=== PATIENT | male | born 1960 | race African-American/Black ===

== ENCOUNTER 2016-10-07 01:38 | Emergency (ER) | payer OTHER ==
[~2016-10-07] VITALS: Ht 172.7 cm; Wt 72.6 kg
[2016-10-07 01:42] VITALS: BP 126/85
== END 2016-10-07 03:26 | disposition home or self-care (01) ==
LOC: ER 01:45
DX: M54.9 Dorsalgia, unspecified (principal); G89.29 Other chronic pain; Z59.0 Homelessness
CPT/HCPCS: 99283; A4606; Z7610

== ENCOUNTER 2019-10-14 19:23 | Emergency (ER) | payer MEDICAID, OTHER ==
[~2019-10-14] VITALS: Ht 172.7 cm; Wt 68.0 kg
--- NOTE | 2019-10-14 20:10 | NUR ---
TO ER BED 15 AMBULATORY BIB SELF FOR C/O SI PLANNING TO CUT HIS WRIST. PT DENIES HI. PT AAOX4 NO ACUTE DISTRESS NOTED, RESP EVEN AND UNLABORED. PT CALM AND COOPERATIVE AT THIS TIME. PLACE PT ON HOSPITAL GOWN, ALL BELONGING REMOVED AND PLACED IN A LOCK HOSPITAL LOCKER. 1:1 SITTER AT BEDSIDE FOR PT SAFETY.
[2019-10-14 20:35] LABS: BASOPHILS # (AUTO) 0.1 /CMM (0.0-0.2); BASOPHILS % (AUTO) 1.1 % (0.0-2.0); EOSINOPHILS % (AUTO) 4.3 % (0.0-6.0); HEMATOCRIT 45 % (39-51); HEMOGLOBIN 14.9 g/dL (13.5-17.5); LYMPHOCYTES # (AUTO) 1.5 /CMM (0.8-4.8); LYMPHOCYTES % (AUTO) 31.8 % (20.0-44.0); MEAN CORPUSCULAR HGB CONC 33 g/dl (31.0-36.0); MEAN CORPUSCULAR VOLUME 95 fL (80-96); MONOCYTES # (AUTO) 0.4 /CMM (0.1-1.30); MONOCYTES % (AUTO) 8.1 % (2.0-12.0); NEUTROPHILS # (AUTO) 2.6 /CMM (1.8-8.9); NEUTROPHILS % (AUTO) 54.7 % (43.0-81.0); PLATELET COUNT (AUTO) 230 /CMM (150-450); RED BLOOD CELL COUNT(AUTO) 4.73 MIL/uL (4.5-6.0); WHITE BLOOD COUNT (AUTO) 4.7 K/uL (4.3-11.0)
[2019-10-14 20:47] LABS: CARBON DIOXIDE 30 mmol/L (21-32); CHLORIDE 108 mmol/L (98-107); CREATININE 1.3 mg/dL (0.6-1.3); GLUCOSE 93 mg/dL (74-106); POTASSIUM 4.1 mmol/L (3.5-5.1); SODIUM SERUM 145 mmol/L (136-145); UREA NITROGEN, BLOOD 22 mg/dL (7-18)
[2019-10-14 20:52] LABS: ALANINE AMINOTRANSFERASE 43 U/L (12-78); ALBUMIN 3.6 g/dL (3.4-5.0); ALCOHOL, BLOOD < 3 mg/dL (0-0); ALKALINE PHOSPHATASE 222 U/L (46-116); ASPARTATE AMINOTRANSFERASE 35 U/L (15-37); BILIRUBIN,DIRECT 0.1 mg/dL (0.0-0.2); BILIRUBIN,TOTAL 0.3 mg/dL (0.2-1.0); TOTAL PROTEIN, SERUM 7.4 g/dL (6.4-8.2)
[2019-10-14 20:53] LABS: ACETAMINOPHEN < 2 ug/ml (10-30); SALICYLATE < 2.8 mg/dL (2.8-20.0)
[2019-10-14 22:20] LABS: APPEARANCE,URINE CLEAR (CLEAR); BILIRUBIN,URINE NEGATIVE (NEGATIVE); BLOOD, URINE NEGATIVE Ery/uL (NEGATIVE); COLOR,URINE YELLOW (YELLOW); KETONES,URINE NEGATIVE (NEGATIVE); LEUKOCYTE ESTERASE ,URINE NEGATIVE (NEGATIVE); NITRITE, URINE NEGATIVE (NEGATIVE); PROTEIN,URINE NEGATIVE (NEGATIVE); UGLUCOSE NEGATIVE (NEGATIVE)
[2019-10-14 22:31] LABS: BACTERIA,URINE Few /HPF (None Seen); SQUAMOUS EPITHELIAL CELL,UR Rare /HPF (None Seen)
--- NOTE | 2019-10-14 22:38 | NUR ---
CLINICAL FAXED TO [facility] FOR VOLUNTARY PSYCH ADMISSION.
--- NOTE | 2019-10-15 00:29 | NUR ---
PT ASLEEP, EASILY AROUSABLE, NO ACUTE DISTRESS NOTED, RESP EVEN AND UNLABORED. CALL LIGHT WIHTIN REACH. 1:1 SITTER REMAINS AT BEDSIDE FOR PT SAFETY.
--- NOTE | 2019-10-15 02:25 | NUR ---
PT ACCEPTED AT [facility] ACCEPTING MD VICKERS PT WILL GOT O UNIT 2 PHONE # FOR REPORT
--- NOTE | 2019-10-15 02:58 | NUR ---
[facility] CALLED FOR AMBULANCE TRANSPORT WILL CALL BACK FOR ETA RESERVATION #[phone]
--- NOTE | 2019-10-15 03:48 | NUR ---
REPORT GIVEN TO MARQUIS FOR JÚNIOR FROM [facility]
--- NOTE | 2019-10-15 03:59 | NUR ---
jaycob 7am eta through [facility]
--- NOTE | 2019-10-15 05:46 | NUR ---
PT ASLEEP, EASILY AROUSABLE, NO ACUTE DISTRESS NOTED, RESP EVEN AND UNLABORED. CALL LIGHT WIHTIN REACH. 1:1 SITTER REMAINS AT BEDSIDE FOR PT SAFETY.
[2019-10-15 06:52] VITALS: BP 143/94
--- NOTE | 2019-10-15 06:54 | NUR ---
PT RESTING COMFORTABLY. VSS.
--- NOTE | 2019-10-15 07:18 | NUR ---
REPORT GIVEN TO TRANSPORT. PT TRANSFERED TO [facility].
== END 2019-10-15 07:19 ==
LOC: ER 19:27
DX: R45.851 Suicidal ideations (principal); F32.9 Major depressive disorder, single episode, unspecified; G89.29 Other chronic pain; M54.5 Low back pain; F20.9 Schizophrenia, unspecified; Z98.890 Other specified postprocedural states
CPT/HCPCS: 36415; 80048; 80076; 80305; 80307; 80329; 81001; 85025; 99285; G0480; 81000-TC

== ENCOUNTER 2020-08-13 09:44 | Emergency (ER) | payer OTHER ==
[~2020-08-13] VITALS: Ht 172.7 cm; Wt 72.6 kg
--- NOTE | 2020-08-13 09:52 | NUR ---
pt ambulatory usinng a walker. requesting medical clearance so he can go to [facility] for voluntary psych admission. pt states feeling depressed and suicidal w. plan to "cut his wrist." pt is cooperative to staff. stable vitals aircraft captain. awaiting md fuller.
--- NOTE | 2020-08-13 10:02 | NUR ---
dr schuster at bedside for eval.
--- NOTE | 2020-08-13 10:40 | NUR ---
analytical lab analyst at bedside for blood draw.
[2020-08-13 10:47] LABS: BILIRUBIN,URINE Negative (NEGATIVE); COLOR,URINE YELLOW (YELLOW); LEUKOCYTE ESTERASE ,URINE Negative (NEGATIVE); NITRITE, URINE Negative (NEGATIVE); PH,URINE 5.5 (5.0-8.0); PROTEIN,URINE Negative (NEGATIVE); UGLUCOSE Negative (NEGATIVE)
[2020-08-13 10:53] LABS: BASOPHILS % (AUTO) 0.9 % (0.0-2.0); EOSINOPHILS % (AUTO) 3.5 % (0.0-6.0); HEMATOCRIT 45 % (39-51); HEMOGLOBIN 14.8 g/dL (13.5-17.5); LYMPHOCYTES # (AUTO) 1.7 K/uL (0.8-4.8); LYMPHOCYTES % (AUTO) 31.3 % (20.0-44.0); MEAN CORPUSCULAR HGB CONC 33 g/dl (31.0-36.0); MEAN CORPUSCULAR VOLUME 91 fL (80-96); MONOCYTES # (AUTO) 0.5 K/uL (0.1-1.30); MONOCYTES % (AUTO) 9.7 % (2.0-12.0); NEUTROPHILS % (AUTO) 54.6 % (43.0-81.0); PLATELET COUNT (AUTO) 259 K/uL (150-450); RED BLOOD CELL COUNT(AUTO) 4.92 MIL/uL (4.5-6.0); WHITE BLOOD COUNT (AUTO) 5.4 K/uL (4.3-11.0)
[2020-08-13 11:09] LABS: BACTERIA,URINE Few /HPF (None Seen); RBC,URINE NONE SEEN /HPF (0-2); SQUAMOUS EPITHELIAL CELL,UR None Seen /HPF (None Seen)
[2020-08-13 11:22] LABS: CHLORIDE 101 mmol/L (98-107); POTASSIUM 4.5 mmol/L (3.5-5.1); SODIUM SERUM 137 mmol/L (136-145)
[2020-08-13 11:23] LABS: CALCIUM, SERUM 9.7 mg/dL (8.5-10.1); CARBON DIOXIDE 31 mmol/L (21-32); CREATININE 1.3 mg/dL (0.6-1.3); GLUCOSE 95 mg/dL (74-106); UREA NITROGEN, BLOOD 28 mg/dL (7-18)
[2020-08-13 11:33] LABS: BILIRUBIN,DIRECT 0.2 mg/dL (0.0-0.2); BILIRUBIN,TOTAL 0.5 mg/dL (0.2-1.0)
[2020-08-13 11:34] LABS: ACETAMINOPHEN < 3 ug/ml (10-30); ALANINE AMINOTRANSFERASE 89 U/L (12-78); ALBUMIN 3.6 g/dL (3.4-5.0); ALKALINE PHOSPHATASE 124 U/L (46-116); ASPARTATE AMINOTRANSFERASE 77 U/L (15-37); TOTAL PROTEIN, SERUM 7.8 g/dL (6.4-8.2)
[2020-08-13 11:42] LABS: ALCOHOL, BLOOD 0 mg/dL (0-0)
--- NOTE | 2020-08-13 11:59 | NUR ---
Patient denies having any distress at this time. Having lunch. Tolerated provided food well.
--- NOTE | 2020-08-13 14:20 | NUR ---
SS Consult requested for SI & Homelessness. The pt. is 43-year-old black male who presents to the ED with C/O SI. SW met with pt. The pt. appears unkempt A&O X4 and makes good eye contact. Pt.'s mood is dysphoric, with stressed affect a few days ago. Pt. presents guarded and stated, "a lot has happened that triggered these thoughts". Pt. states he has a Hx. of Schizophrenia and is currently on Abilify. Pt. denies HI and denies hallucinations SW offered pt. voluntary admission at a psychiatric hospital for treatment and pt. is agreeable. Pt. denies homelessness. However, pt. appears disheveled. Pt. stated he lives in [[address] [place] [address]] alone. Pt, states he is in the [facility] someone. Pt. states he receives General Relief. Pt. denies HI and denies visual hallucinations. Pt. denies drug or ETOH use. SW provided pt. with homeless resources and pt. refused them. Pt. stated he doesn't have a support system. SW explored pt.'s polysubstance use. Pt. states he uses Cocaine and Cannabinoids a few times a week. SW provided pt. with addiction resources and pt. refused them. Plan: CALIN referred pt. to [facility] [[facility] [place] [address] FAX:[phone]] for inpatient psychiatric treatment. Patient refused to sign homeless waiver. CALIN offered pt. with the following homeless resources and pt. refused them: Substance Abuse resources provided included: [facility] Substance Abuse Self-Helpline (SAS) ; CRI -HELP 93722 [facility] [place] [id number] ; [facility] 63521 [facility] [address] ; [facility] 89346 [facility] [address] ; [facility] [address] [facility] [address] ; [facility] [address] [facility] [address] ; [facility] [place] [address] [facility] [phone] ; [facility] Substance Abuse Helpline(SAS)[facility] ; [facility] ; [facility] Yeoman; [facility] [place] Randolph; C[facility]Help [place]; I-ADARP Inter [facility] Abuse Recovery Inocente Rolon; [facility]; [facility]; [facility] Tarza; [facility] [place], Inc. Tyson Alcantara; Alcoholics Anonymous -SFV; Yz-Gwgs-Seivehh ; Marijuana Anonymous -SFV; Narcotics Anonymous www.na.org; Year-round shelters: [place] [address] [place], [place] [phone] ; [place] [facility] [place] [address] [place] [address]; [place] [facility] Ldnucea8799 [facility] [address] Winter Shelters: Roberto Alcantara Provider: [facility] [place] Address: [address] [facility] [place], [address] # of Beds: 47 Population Served: [facility] 6 | [facility] Niecy Callaway Maricruz Provider: Home at Last Address: [address], [address] # of Beds: 66 Population Served: Celestino Alcantara Provider: First to Serve Address: [address] [facility], [address] # of Beds: 56 Population Served: Celestino Alcantara Provider: /[facility] [place] Address: 8908 [facility], [address] # of Beds: 49 Population Served: Coed SPA 8 | [facility] Provider: First to Serve Address: [address] Mary Imogene Bassett HospitalYoandy Goode, [address] # of Beds: 37 Population Served: Coed Hygiene: [place] [facility]: [address] [place] ; [place] [facility] [address] [facility] Reseda ; [facility] 1939 [facility] . Food Resources: [place] Food Pantry at [facility]- 5700 [facility]; Meet Each Need with Dignity ([facility]) 44664 [facility]; [facility] Food Pantry 4371 [facility]; [facility] 8517 [facility]. Mental Health resources provided: [facility] [address] [place], [place] [phone] ; [facility] Mental Health Center, Inc. 38117 [facility] [address], [place], [place] [phone] ; [place] Patricia [facility] Mental Health Urgent Care Center [address] Britt[address] Gomez DrWeyers [place], [place] [phone] ; [place] [facility] [address] [place], [place] [address] Healthcare Clinics: [facility] 6551 [facility], [address] [place]. [place] ; [facility] 68[address] [facility] [address] [place] [address]; [facility] 61523 [facility]. [place] [phone] Counseling--Outpatient [facility] 4419 [facility], [place] [address] (Specializes in in-depth psychotherapy for emotional distress: anxiety, depression, interpersonal conflicts, life transitions, childhood abuse) [facility] [address] [place] [address] (Assist with solving problem marital difficulties, separation & divorce, aging parents, & grief, chronic & terminal illness) [facility] [address] [place] [address] (Deal with loss & grief, anxiety, marital difficulties) Homebound/Mental Health Services 29333 Miguel Angel[facility] [address] [place], [place] [phone] (Provide in-home mental services to people who are incapable of leaving their homes) Organization for Needs of the Elderly Senior Service/Resource Center [address] [place] [address] [facility] [address] Hernandez [place], [place] [phone] PSYCHIATRIC OUTPATIENT SERVICES [facility] Partial Hospitalization and Intensive Outpatient Program (Managed Care and [place] Only)02296 [facility]. [facility] [phone] [facility] Partial Hospitalization and Outpatient Yfpaitk40224 Rohan [facility]. [address] [place], [place] [phone] [facility] Partial Hospitalization and Outpatient Neseuys2887 Inocente Rolon [facility]. [place], [place] [phone] [facility] Eki96972 [address] Goncalves. [address] [place], [place] [phone] [facility] Partial Hospitalization and Outpatient Ultnpri35523 Gregg Gomez [phone]
--- NOTE | 2020-08-13 14:24 | NUR ---
SW referred pt. to [facility] [[address] [place] [address] FAX:[phone]] for inpatient psychiatric treatment.
--- NOTE | 2020-08-13 17:10 | NUR ---
CALLED FRANCISCO WILL LEET US KNOW ZACHARIAH SUE.
--- NOTE | 2020-08-13 18:48 | NUR ---
CALLED [facility] INTAKE, NURSING SUP REVIEWING CLINICALS WILL CALL WITH UPDATE
--- NOTE | 2020-08-13 19:00 | NUR ---
The patient sleeping. Responsive to tactile stimuli. Denies pain. In room air and denies SOB. Respiration regular and unlabored.
--- NOTE | 2020-08-13 23:26 | NUR ---
TRANSFER INFO: PT GOING TO [facility], ACCEPTED BY DR VICKERS, RN FOR REPORT [phone] EXT [phone], CALL THE CAR AMBULANCE ETA TO FOLLOW. RES#[id number]
--- NOTE | 2020-08-14 03:33 | NUR ---
REPORT GIVEN TO TUNG KELLEY AT [facility].
--- NOTE | 2020-08-14 03:35 | NUR ---
REPORT GIVEN TO AMBULANCE TEAM FOR JÚNIOR. AND TRANSFERRING RESPONSIBLITIES.
[2020-08-14 03:36] VITALS: BP 139/58
== END 2020-08-14 03:37 ==
LOC: ER 09:49
DX: R45.851 Suicidal ideations (principal); F14.10 Cocaine abuse, uncomplicated; F12.10 Cannabis abuse, uncomplicated; R74.01 Elevation of levels of liver transaminase levels; F19.10 Other psychoactive substance abuse, uncomplicated; G89.29 Other chronic pain; M54.5 Low back pain; Z20.822 Contact with and (suspected) exposure to COVID-19
CPT/HCPCS: 36415; 80048; 80076; 80143; 80307; 80320; 81001; 85025; 87086; 87426; 99285; C9803; G0480

== ENCOUNTER 2020-08-25 03:42 | Emergency (ER) | payer MEDICAID, OTHER ==
[~2020-08-25] VITALS: Ht 172.7 cm; Wt 72.6 kg
[2020-08-25] MEDS ORDERED: FLUORESCEIN SODIUM OPHTH 1 EA STRIP ONE (04:19)
--- NOTE | 2020-08-25 04:25 | NUR ---
PRSENTED TO THE ER FOR C/O SI, W/ PLAN TO CUT HIS WRIST. ALSO W/ C/O REDNESS AND BURNING SENSATION ON BOTH EYES. PT UNABLE TO PROVIDE URINE SAMPLE AT THIS TIME. WAS PLACED ON SI PRCAUTION. VSS. WILL CONT TO MONITOR ,
[2020-08-25] MEDS: TETRACAINE HCL 0.5% OPHTALMIC 15 ML BOTTLE OP ONE (04:29)
[2020-08-25] MEDS: FLUORESCEIN SODIUM OPHTH 1 EA STRIP OP ONE (04:29)
[2020-08-25 04:38] LABS: BASOPHILS # (AUTO) 0.1 K/uL (0.0-0.2); BASOPHILS % (AUTO) 0.9 % (0.0-2.0); EOSINOPHILS % (AUTO) 3.7 % (0.0-6.0); HEMATOCRIT 46 % (39-51); HEMOGLOBIN 15.5 g/dL (13.5-17.5); LYMPHOCYTES # (AUTO) 1.9 K/uL (0.8-4.8); MEAN CORPUSCULAR HGB CONC 33 g/dl (31.0-36.0); MEAN CORPUSCULAR VOLUME 91 fL (80-96); MONOCYTES # (AUTO) 0.7 K/uL (0.1-1.30); MONOCYTES % (AUTO) 11.7 % (2.0-12.0); NEUTROPHILS # (AUTO) 3.1 K/uL (1.8-8.9); NEUTROPHILS % (AUTO) 51.7 % (43.0-81.0); PLATELET COUNT (AUTO) 258 K/uL (150-450); RED BLOOD CELL COUNT(AUTO) 5.07 MIL/uL (4.5-6.0); WHITE BLOOD COUNT (AUTO) 6.1 K/uL (4.3-11.0)
--- NOTE | 2020-08-25 04:42 | NUR ---
COVID SWAB AND URINE SAMPLE WAS SENT TO LAB
[2020-08-25 04:44] LABS: CARBON DIOXIDE 28 mmol/L (21-32); CHLORIDE 104 mmol/L (98-107); CREATININE 1.2 mg/dL (0.6-1.3); GLUCOSE 106 mg/dL (74-106); POTASSIUM 4.2 mmol/L (3.5-5.1); SODIUM SERUM 139 mmol/L (136-145); UREA NITROGEN, BLOOD 25 mg/dL (7-18)
[2020-08-25 04:49] LABS: BILIRUBIN,URINE NEGATIVE (NEGATIVE); COLOR,URINE YELLOW (YELLOW); LEUKOCYTE ESTERASE ,URINE NEGATIVE (NEGATIVE); NITRITE, URINE NEGATIVE (NEGATIVE); PROTEIN,URINE TRACE mg/dl (NEGATIVE); UGLUCOSE NEGATIVE (NEGATIVE)
[2020-08-25 04:51] LABS: ACETAMINOPHEN 0 ug/ml (10-30); ALANINE AMINOTRANSFERASE 69 U/L (12-78); ALBUMIN 3.7 g/dL (3.4-5.0); ALCOHOL, BLOOD < 3 mg/dL (0-0); ALKALINE PHOSPHATASE 138 U/L (46-116); ASPARTATE AMINOTRANSFERASE 40 U/L (15-37); BILIRUBIN,DIRECT 0.2 mg/dL (0.0-0.2); BILIRUBIN,TOTAL 0.4 mg/dL (0.2-1.0); TOTAL PROTEIN, SERUM 7.9 g/dL (6.4-8.2)
[2020-08-25 05:09] LABS: BACTERIA,URINE None seen /HPF (None Seen); MUCUS,URINE Few /LPF (None Seen); RBC,URINE 0-2 /HPF (0-2); SQUAMOUS EPITHELIAL CELL,UR Few /HPF (None Seen); WBC,URINE 0-2 /HPF (0-3)
--- NOTE | 2020-08-25 07:10 | NUR ---
FACESHEET AND CLINICALS FAXED TO [facility].
--- NOTE | 2020-08-25 09:14 | NUR ---
[facility]
--- NOTE | 2020-08-25 09:17 | NUR ---
CALLED SEARCH COORDINATOR... IN A MEETING AND WILL COME LATER
--- NOTE | 2020-08-25 11:50 | NUR ---
"Ukrainian Folk Arts Instructor consult: rehabilitation services manager consult requested for suicidal ideation with a plan and substance use. Patient is a 59-year-old, male. SW met with patient at his bedside in the emergency department. Patient was alert and oriented x4. Patient was calm and eating his lunch. Per chart, patient presented to the emergency department on 08/25/20 for complaints of suicidal ideation with a plan to cut his wrist. ED nursing staff development coordinator previously faxed clinicals to [facility], , for review. SW assessed patients current suicidal ideation and patient reported current suicidal ideation with a plan to cut his wrist. Patient denied homicidal ideation. Patient agreed to voluntary inpatient psychiatric hospitalization at [facility], if accepted. Patient reported that he has been homeless for the last nine months and has been living in his car. Patient stated that his car is currently parked in the hospital. SW asked the patient if he has access to social support and patient stated that he is in contact with his sister, Taylor, . Patient stated that his sister assists him occasionally by providing showers or money. Patient stated that he uses a walker and his walker is in his car. SW asked the patient if he currently has a source of income and patient reported SSI. SW asked the patient about his history of substance use and patient reported, alcohol, cannabis and cocaine whenever I can. Patient did not provide SW with further information regarding his substance use frequency/daily use. SW assessed patients history of mental illness and patient reported a history of Depression and Schizophrenia. Patient stated that he currently takes psychiatric medication which includes, Abilify and Trazodone. SW asked the patient where he obtains his psychiatric medication prescriptions and patient reported, [facility]. SW offered the patient homeless, substance use and mental health resources. Patient accepted the resources and thanked SW stating that he will follow up independently. Patient signed the homeless waiver and SW filed the waiver in the patients chart. Pending acceptance to [facility]. PLAN: Pending acceptance to [facility]. RESOURCES: Year-round shelters: [place] [address] [place] [address] ; [facility] [place] [address] [place] [address]; [facility] [facility] Ovuwewl0541 [facility]. [facility] [address] HOMELESS RESOURCES: SPA 4 | [facility] Recreation [place] Provider: First to Serve Address: [address], [address] # of Beds: 48 Population Served: [facility] Provider: First to Serve Address: 7600 [facility], [address] # of Beds: 73 Population Served: [facility] 6 | [facility] Provider: Home at Last Address: 45329 [facility], [address] # of Beds: 63 Population Served: [facility] 3 | [facility] Provider: [facility] [place] Address: [address] [place] [address] # of Beds: 75 Population Served: [facility] 8 | [facility] Provider: [facility] [place] Address: [address] [place] [address] # of Beds: 80 Population Served: [facility] 1 | [facility] [place] Provider: [facility] [place] Address: [address] [place] [address], [address] # of Beds: 85 Population Served: [facility] 2 | [facility] Provider: [place] [facility] Address: Confidential (please call for location) # of Beds: 52 Population Served: [facility] 4 | [facility] Provider: [facility] [place] [facility] Address: 566 [facility], [address] # of Beds: 49 Population Served: [facility] Provider: First To Serve Address: 313 [facility], [address] # of Beds: 27 Population Served: [facility] Hygiene: [place] [facility]: [address] Vipul Hernandez [place] ; [place] [facility] [address]796 [facility] ; [facility] 3601 Inocente Rosasys . Food Resources: [place] Food Pantry at [facility]- [address] Mir. [place]; Meet Each Need with Dignity ([facility]) [address] [place]; [facility] Food Pantry 4369 [facility]cy[facility]; [facility] [address] [place] [address] [place]. Mental Health resources provided: [facility] [address] [place] [address] ; [facility] Mental Health [place], Inc. [address]492 [facility] [address] 2, [place], [place] [phone] ; [facility] Urgent Care Center 03804 [facility] [place], [place] [phone] ; [facility] [place] [address] [place], [place] [phone] Healthcare Clinics: [facility] 6551 [facility], [address] [place]. [place] ; [facility] Clinic 6801 [facility] [address] [place] [address]; [facility] [address]256 [facility]. [place] [address] [phone] Counseling--Outpatient [facility] 4419 [facility], [place] [address] (Specializes in in-depth psychotherapy for emotional distress: anxiety, depression, interpersonal conflicts, life transitions, childhood abuse) PSYCHIATRIC OUTPATIENT SERVICES [facility] Partial Hospitalization and Intensive Outpatient Program (Managed Care and [place] Only) 85656 [facility]. [facility] [phone] [facility] Partial Hospitalization and Outpatient Program 86318 [facility]. [address] [place] [address] [facility] Partial Hospitalization and Outpatient Program 4911 [facility] [place] [address] VAN NUYS [facility] Mental Health [place] Inc [address] Litzy [facility]. [address] [place], [place] [address] [facility] Partial Hospitalization and Outpatient Program [address] Gre[facility] Lt[facility] HospitaledgardoSEATTLE, [place] [phone] Substance use resources provided included: [facility] Substance Abuse Self-Helpline (SAS) ; CRI -HELP [address]74 [place] [address] ; [facility] 51129 [facility] [address] ; [facility] 400 [facility] [address] ; [facility] 4940 [facility] [address] ; [facility] 909 [facility] [address] ; [facility] [place]; Cri-Help [place]; [place] Ludivina; Alcoholics Anonymous -SFV"
--- NOTE | 2020-08-25 13:56 | NUR ---
Ophthalmic Pathologist note: Per [facility] request, CALIN re-faxed clinicals to [facility], .
--- NOTE | 2020-08-25 15:35 | NUR ---
PT ACCEPTED TO [facility] UNDER DR. GRUBBS CALL [phone] X [phone] UNIT TWO JOCELYNE
--- NOTE | 2020-08-25 15:39 | NUR ---
[facility] [place] TWO HOUR ETA
--- NOTE | 2020-08-25 15:41 | NUR ---
CALLED [facility] ETA 60 MINS.
[2020-08-25 16:00] VITALS: BP 118/70
--- NOTE | 2020-08-25 16:28 | NUR ---
patient picked up by private ambulance going to [facility] in no distress.
== END 2020-08-25 16:28 ==
LOC: ER 03:52
DX: R45.851 Suicidal ideations (principal); F19.10 Other psychoactive substance abuse, uncomplicated; S05.92XA Unspecified injury of left eye and orbit, initial encounter; S05.91XA Unspecified injury of right eye and orbit, initial encounter; X58.XXXA Exposure to other specified factors, initial encounter; Y92.89 Other specified places as the place of occurrence of the external cause; Z20.822 Contact with and (suspected) exposure to COVID-19; Z59.0 Homelessness; F17.200 Nicotine dependence, unspecified, uncomplicated
CPT/HCPCS: 36415; 80048; 80076; 80143; 80307; 80320; 81001; 85025; 87426; 99285; C9803; G0480

== ENCOUNTER 2020-10-23 02:03 | Emergency (ER) | payer MEDICAID ==
[~2020-10-23] VITALS: Ht 172.7 cm; Wt 75.7 kg
--- NOTE | 2020-10-23 02:08 | NUR ---
PATIENT CAME TO THE ER BED 14 BIBRA FROM HOME C/O SUICIDIAL IDEATION" I PLAN TO RUN INTO TRAFFIC, IF NOT, I WILL CUT MYSELF WITHAliza ROÍS". PATIENT IS ALERT AND ORIENTED x4. PATIENT IS PLACED INTO A GOWN. PT'S PERSONAL ITEMS ARE REMOVED TAKEN AWAY. PATIENT IS BEING WATCHED BY A SITTER. PATIENT IS BREATHING EVENLY AND UNLABORED ON ROOM AIR. WILL CONTINUE TO MONITOR THE PATIENT.
--- NOTE | 2020-10-23 02:13 | NUR ---
PATIENT'S BELONGINGS ARE REMOVED AND PLACED INTO A SAFE LOCKER.
--- NOTE | 2020-10-23 02:20 | NUR ---
BLOOD AND COVID SWAB ANTIGEN COLLECTED AND SENT TO THE LAB.
[2020-10-23 02:28] LABS: BASOPHILS % (AUTO) 0.9 % (0.0-2.0); EOSINOPHILS % (AUTO) 4.1 % (0.0-6.0); HEMATOCRIT 46 % (39-51); HEMOGLOBIN 15.7 g/dL (13.5-17.5); LYMPHOCYTES # (AUTO) 1.8 K/uL (0.8-4.8); LYMPHOCYTES % (AUTO) 34.1 % (20.0-44.0); MEAN CORPUSCULAR HGB CONC 34 g/dl (31.0-36.0); MEAN CORPUSCULAR VOLUME 93 fL (80-96); MONOCYTES # (AUTO) 0.3 K/uL (0.1-1.30); NEUTROPHILS # (AUTO) 2.9 K/uL (1.8-8.9); NEUTROPHILS % (AUTO) 54.9 % (43.0-81.0); PLATELET COUNT (AUTO) 252 K/uL (150-450); RED BLOOD CELL COUNT(AUTO) 4.95 MIL/uL (4.5-6.0); WHITE BLOOD COUNT (AUTO) 5.3 K/uL (4.3-11.0)
[2020-10-23 02:36] LABS: ALANINE AMINOTRANSFERASE 52 U/L (12-78); ALBUMIN 3.5 g/dL (3.4-5.0); ALCOHOL, BLOOD < 3 mg/dL (0-0); ALKALINE PHOSPHATASE 198 U/L (46-116); ASPARTATE AMINOTRANSFERASE 37 U/L (15-37); BILIRUBIN,TOTAL 0.2 mg/dL (0.2-1.0); CALCIUM, SERUM 9.3 mg/dL (8.5-10.1); CARBON DIOXIDE 32 mmol/L (21-32); CHLORIDE 109 mmol/L (98-107); CREATININE 1.3 mg/dL (0.6-1.3); GLUCOSE 115 mg/dL (74-106); POTASSIUM 4.7 mmol/L (3.5-5.1); SODIUM SERUM 149 mmol/L (136-145); TOTAL PROTEIN, SERUM 7.3 g/dL (6.4-8.2); UREA NITROGEN, BLOOD 20 mg/dL (7-18)
[2020-10-23 02:37] LABS: ACETAMINOPHEN 0 ug/ml (10-30)
--- NOTE | 2020-10-23 03:20 | NUR ---
URINE COLELCTED AND SENT LAB
[2020-10-23 03:23] LABS: BILIRUBIN,URINE Negative (NEGATIVE); COLOR,URINE DARK YELLOW (YELLOW); LEUKOCYTE ESTERASE ,URINE Negative (NEGATIVE); NITRITE, URINE Negative (NEGATIVE); PROTEIN,URINE Negative (NEGATIVE); UGLUCOSE Negative (NEGATIVE)
--- NOTE | 2020-10-23 04:05 | NUR ---
FACESHEET AND CLINICALS FAXED TO [facility].
[2020-10-23] MEDS ORDERED: GABA-532 PO (08:49)
[2020-10-23] MEDS ORDERED: TAMS-12 PO ×2 (08:49→13:30)
[2020-10-23] MEDS ORDERED: LISI40TA13 PO (08:49)
--- NOTE | 2020-10-23 11:05 | NUR ---
SS consult: SS consult requested for pt with SI. Pt is a 59-year-old, male. SW met with pt at his bedside in the ED. Pt presented calm and cooperative. Pt was appropriately groomed. Pt was alert and oriented x4. Per chart, pt was brought in by ambulance from home on 10/23/20 for SI with a plan to harm himself by running into traffic or cutting himself with a blade. Pt stated that he currently lives in an apartment with his sister, Taylor [[address] [place] [address]]. Pt stated that he has social support from his sister, Taylor. Pt did not have contact information for his sister. Pt stated that he is independent with his ADL's. Pt receives SSI as a source of income. Pt denied hx of substance use. Per pt's toxicology pt is positive for cocaine, amphetamine and cannabis use. Pt reported hx of Bipolar Disorder and stated that he is currently taking psychiatric medication. Pt was unable to recall which medications he is currently taking. Pt stated that he obtains his medication from a mental health clinic in [facility]. Pt denied hallucinations. SW assessed pt's current SI/HI. Pt denied current SI/HI and stated that he is "feeling a lot better," and wants to go home. Pt stated that he is able to contract for his safety and is aware of where to go if he is feeling suicidal. SW offered the pt resources for mental health. Pt accepted the resources and thanked SW. Pt was informed that [facility], if he was experiencing SI at a later time. Pt stated that he is familiar with the hospital and will seek support if needed. Pt stated that he will utilize his social support more. SW discussed discharge plans with the pt. Pt stated that he will return to his prior living arrangement and will use the train for transportation. PLAN: Pt will return to his prior living arrangement. No further SS intervention at this time, however, SW will remain available as needed. Mental Health resources provided: [facility] [address] [place] [address] ; [facility], Inc. [address] [facility] [address], [place] [address] ; [facility] [address]6747 [place] [address] ; [facility] [place], [place] [phone] Counseling--Outpatient [facility] 4419 [facility], [place] [address] (Specializes in in-depth psychotherapy for emotional distress: anxiety, depression, interpersonal conflicts, life transitions, childhood abuse) PSYCHIATRIC OUTPATIENT SERVICES [facility] Partial Hospitalization and Intensive Outpatient Program (Managed Care and [place] Only) 17227 [facility]. [facility] [phone] [facility] Partial Hospitalization and Outpatient Program [address] [place], [place] [phone] [facility] Partial Hospitalization and Outpatient Program 4911 Sourav Rolon [facility]. [place], [place] [phone] SOURAV [facility] Mental Health [place] [facility] [address] [place], [place] [phone] [facility] Partial Hospitalization and Outpatient Program [address] [place], [place] [phone]
[2020-10-23] MEDS ORDERED: AMLO-213 PO (13:30)
[2020-10-23] MEDS ORDERED: CYCL5TAB PO (13:30)
[2020-10-23] MEDS ORDERED: AMLODIPINE BESYLATE 10 MG TABLET ONE (13:41)
[2020-10-23] MEDS ORDERED: CYCLOBENZAPRINE 10 MG TABLET ONE (13:41)
[2020-10-23] MEDS ORDERED: TAMSULOSIN 0.4 MG CAP.SR.24H ONE (13:42)
[2020-10-23 13:53] VITALS: BP 152/77
--- NOTE | 2020-10-23 13:54 | NUR ---
Patient a/ox4, breathing even and unlabored, no sob noted. Needs attended. Patient discharged to home in stable condition. Written and verbal after care instructions given. Patient verbalizes understanding of instruction.
[2020-10-23] MEDS ORDERED: TAMSULOSIN 0.4 MG CAP.SR.24H PO ONE (14:00)
[2020-10-23] MEDS ORDERED: AMLODIPINE BESYLATE 5 MG TABLET PO ONE (14:00)
[2020-10-23] MEDS ORDERED: CYCLOBENZAPRINE 10 MG TABLET PO ONE (14:00)
== END 2020-10-23 13:54 | disposition home or self-care (01) ==
LOC: ER 02:03
DX: R45.851 Suicidal ideations (principal); F19.10 Other psychoactive substance abuse, uncomplicated; Z20.822 Contact with and (suspected) exposure to COVID-19; F20.9 Schizophrenia, unspecified
CPT/HCPCS: 36415; 80048; 80076; 80143; 80307; 80320; 81003; 85025; 87426; 99285; C9803; G0480

== ENCOUNTER 2020-10-24 18:31 | Emergency (ER) | payer MEDICAID ==
[~2020-10-24] VITALS: Ht 172.7 cm; Wt 75.7 kg
[~2020-10-24 18:31] MED LIST: AMLO-213 PO; CYCL5TAB PO; GABA-532 PO; LISI40TA13 PO; TAMS-12 PO
--- NOTE | 2020-10-24 19:05 | NUR ---
Pt bibself c/o si with plan to cut wrist. Pt aaox4 breathing evenly and unlabored. Pt changed into gown with belongings placed in locker. Sitter at bedside. Pt attached to monitor and pox. will continue to monitor.
[2020-10-24 19:43] LABS: BILIRUBIN,URINE Negative (NEGATIVE); COLOR,URINE YELLOW (YELLOW); LEUKOCYTE ESTERASE ,URINE Negative (NEGATIVE); NITRITE, URINE Negative (NEGATIVE); PROTEIN,URINE Negative (NEGATIVE); UGLUCOSE 250 MG/DL mg/dL (NEGATIVE)
[2020-10-24 19:49] LABS: EOSINOPHILS % (AUTO) 2.5 % (0.0-6.0); HEMATOCRIT 48 % (39-51); HEMOGLOBIN 15.7 g/dL (13.5-17.5); LYMPHOCYTES # (AUTO) 0.5 K/uL (0.8-4.8); LYMPHOCYTES % (AUTO) 13.5 % (20.0-44.0); MEAN CORPUSCULAR HGB CONC 33 g/dl (31.0-36.0); MEAN CORPUSCULAR VOLUME 94 fL (80-96); MONOCYTES # (AUTO) 0.4 K/uL (0.1-1.30); MONOCYTES % (AUTO) 11.7 % (2.0-12.0); NEUTROPHILS # (AUTO) 2.6 K/uL (1.8-8.9); NEUTROPHILS % (AUTO) 71.3 % (43.0-81.0); PLATELET COUNT (AUTO) 235 K/uL (150-450); WHITE BLOOD COUNT (AUTO) 3.7 K/uL (4.3-11.0)
[2020-10-24 19:55] LABS: CALCIUM, SERUM 9.6 mg/dL (8.5-10.1); CARBON DIOXIDE 32 mmol/L (21-32); CHLORIDE 103 mmol/L (98-107); CREATININE 1.2 mg/dL (0.6-1.3); GLUCOSE 97 mg/dL (74-106); POTASSIUM 4.1 mmol/L (3.5-5.1); SODIUM SERUM 140 mmol/L (136-145); UREA NITROGEN, BLOOD 12 mg/dL (7-18)
[2020-10-24 20:01] LABS: ALANINE AMINOTRANSFERASE 48 U/L (12-78); ALBUMIN 3.4 g/dL (3.4-5.0); ALCOHOL, BLOOD < 3 mg/dL (0-0); ALKALINE PHOSPHATASE 103 U/L (46-116); ASPARTATE AMINOTRANSFERASE 36 U/L (15-37); BILIRUBIN,DIRECT 0.1 mg/dL (0.0-0.2); BILIRUBIN,TOTAL 0.2 mg/dL (0.2-1.0); TOTAL PROTEIN, SERUM 7.3 g/dL (6.4-8.2)
[2020-10-24 20:02] LABS: ACETAMINOPHEN 0 ug/ml (10-30)
--- NOTE | 2020-10-24 21:46 | NUR ---
PER LAB, PATIENT IS COVID POSITIVE.. NOTIFIED
--- NOTE | 2020-10-24 22:46 | NUR ---
pt attached to monitor and pox. vss
--- NOTE | 2020-10-25 00:15 | NUR ---
Patient is resting comfortably in bed with eyes closed. Easily aroused. VSS
--- NOTE | 2020-10-25 04:14 | NUR ---
Patient is resting comfortably in bed with eyes closed. Easily aroused. VSS
--- NOTE | 2020-10-25 05:35 | NUR ---
Arely davis in ED - 10/25/20 at 0621 by BAYRON Patient discharged to home in stable condition. Written and verbal after care instructions given. Patient verbalizes understanding of instruction. PT ambulatory with a steady gait
--- NOTE | 2020-10-25 05:35 | NUR ---
Pt states he is no longer suicidal, MD aware. Patient given written and verbal discharge instructions. Patient verbalizes understanding of instructions. Patient is ambulatory with steady gait. Refuses offer of [facility] placement. Patient given list of available shelters in surrounding area. Pt refused to sign dc paperwork and homeless waiver.
[2020-10-25 06:26] VITALS: BP 128/81
== END 2020-10-25 05:35 | disposition home or self-care (01) ==
LOC: ER 18:33
DX: R45.851 Suicidal ideations (principal); U07.1 COVID-19; N40.0 Benign prostatic hyperplasia without lower urinary tract symptoms; F20.9 Schizophrenia, unspecified; Z79.899 Other long term (current) drug therapy; Z59.0 Homelessness; Z74.09 Other reduced mobility; Z98.890 Other specified postprocedural states
CPT/HCPCS: 36415; 80048; 80076; 80143; 80307; 80320; 81003; 85025; 87426; 99285; C9803; G0480

== ENCOUNTER 2022-03-09 16:36 | Emergency (ER) | payer MEDICAID, OTHER ==
[~2022-03-09] VITALS: Ht 172.7 cm; Wt 74.8 kg
--- NOTE | 2022-03-09 16:45 | NUR ---
BLANCA Laurent at bedside
--- NOTE | 2022-03-09 16:50 | NUR ---
TO ER 18 FOR EVAL
[2022-03-09 17:32] LABS: BASOPHILS % (AUTO) 0.9 % (0.0-2.0); EOSINOPHILS % (AUTO) 7.9 % (0.0-6.0); HEMATOCRIT 36 % (39-51); HEMOGLOBIN 11.8 g/dL (13.5-17.5); LYMPHOCYTES % (AUTO) 33.9 % (20.0-44.0); MEAN CORPUSCULAR HGB CONC 32 g/dl (31.0-36.0); MEAN CORPUSCULAR VOLUME 91 fL (80-96); MONOCYTES # (AUTO) 0.3 K/uL (0.1-1.30); MONOCYTES % (AUTO) 11.2 % (2.0-12.0); NEUTROPHILS # (AUTO) 1.4 K/uL (1.8-8.9); NEUTROPHILS % (AUTO) 46.1 % (43.0-81.0); PLATELET COUNT (AUTO) 231 K/uL (150-450); RED BLOOD CELL COUNT(AUTO) 4.02 MIL/uL (4.5-6.0); WHITE BLOOD COUNT (AUTO) 3.1 K/uL (4.3-11.0)
[2022-03-09 18:16] LABS: BILIRUBIN,URINE 2+ (NEGATIVE); COLOR,URINE RED (YELLOW); LEUKOCYTE ESTERASE ,URINE 3+ (NEGATIVE); NITRITE, URINE POSITIVE (NEGATIVE); PH,URINE 8.5 (5.0-8.0); PROTEIN,URINE 2+ mg/dl (NEGATIVE); UGLUCOSE NEGATIVE (NEGATIVE)
[2022-03-09 18:18] LABS: ALANINE AMINOTRANSFERASE 34 U/L (12-78); ALBUMIN 2.8 g/dL (3.4-5.0); ALKALINE PHOSPHATASE 92 U/L (46-116); ASPARTATE AMINOTRANSFERASE 33 U/L (15-37); BILIRUBIN,DIRECT 0.1 mg/dL (0.0-0.2); BILIRUBIN,TOTAL 0.2 mg/dL (0.2-1.0); CALCIUM, SERUM 8.8 mg/dL (8.5-10.1); CARBON DIOXIDE 27 mmol/L (21-32); CHLORIDE 111 mmol/L (98-107); CREATININE 1.4 mg/dL (0.6-1.3); GLUCOSE 97 mg/dL (74-106); POTASSIUM 4.6 mmol/L (3.5-5.1); SODIUM SERUM 141 mmol/L (136-145); TOTAL PROTEIN, SERUM 6.5 g/dL (6.4-8.2); UREA NITROGEN, BLOOD 18 mg/dL (7-18)
[2022-03-09 18:28] LABS: BACTERIA,URINE 1+ /HPF (None Seen); RBC,URINE TOO NUMEROUS TO COUN /HPF (0-2)
[2022-03-09 18:29] LABS: COARSE GRANULAR CASTS,URINE Few /LPF (None Seen); SQUAMOUS EPITHELIAL CELL,UR Few /HPF (None Seen)
--- NOTE | 2022-03-09 18:31 | NUR ---
FAXED CLINICALS OVER TO [facility], RECEIVED CONFIRMATION
[2022-03-09 18:45] LABS: ACETAMINOPHEN 0 ug/ml (10-30); ALCOHOL, BLOOD < 3 mg/dL (0-0)
[2022-03-09] MEDS ORDERED: SULF1TAB48 PO (21:12)
[2022-03-09] MEDS ORDERED: SULFAMETH/TRIMETH 800/160 MG 1 UDTAB TABLET ONE (21:18)
[2022-03-09] MEDS ORDERED: SULFAMETH/TRIMETH 800/160 MG 1 UDTAB TABLET PO ONE (21:30)
--- NOTE | 2022-03-10 01:11 | NUR ---
[facility] DR KHALIL # FOR REPORT: [phone]
--- NOTE | 2022-03-10 01:13 | NUR ---
[facility] ETA 30 MINS
--- NOTE | 2022-03-10 01:14 | NUR ---
REPORT GIVEN TO ALLIE CRISOSTOMO
[2022-03-10 01:40] VITALS: BP 133/88
--- NOTE | 2022-03-10 01:40 | NUR ---
[facility] AT BEDSIDE FOR PATIENT TRANSPORT TO [facility]
== END 2022-03-10 02:57 ==
LOC: ER 16:44
DX: R45.851 Suicidal ideations (principal); N39.0 Urinary tract infection, site not specified; D64.9 Anemia, unspecified; F19.10 Other psychoactive substance abuse, uncomplicated; D72.10 Eosinophilia, unspecified; Z98.1 Arthrodesis status; F20.9 Schizophrenia, unspecified; Z20.822 Contact with and (suspected) exposure to COVID-19; N40.0 Benign prostatic hyperplasia without lower urinary tract symptoms; Z79.899 Other long term (current) drug therapy; Z72.0 Tobacco use
CPT/HCPCS: 99285; 99406; 85025; 80048; 87086; 80076; 81001; 36415; 87426; 80143; 80320; 80307; C9803; G0480

== ENCOUNTER 2022-12-26 02:10 | Emergency (ER) | payer OTHER ==
[~2022-12-26] VITALS: Ht 172.7 cm; Wt 72.6 kg
[~2022-12-26 02:10] MED LIST changes: +CEPH500C2 PO; +SULF1TAB48 PO
[2022-12-26 03:22] LABS: BASOPHILS % (AUTO) 0.8 % (0.0-2.0); EOSINOPHILS # (AUTO) 0.2 K/uL (0.0-0.7); EOSINOPHILS % (AUTO) 4.3 % (0.0-6.0); HEMATOCRIT 30 % (39-51); HEMOGLOBIN 9.1 g/dL (13.5-17.5); LYMPHOCYTES # (AUTO) 1.5 K/uL (0.8-4.8); LYMPHOCYTES % (AUTO) 35.1 % (20.0-44.0); MEAN CORPUSCULAR HEMOGLOBIN 23 PG (26.0-33.0); MEAN CORPUSCULAR HGB CONC 31 g/dl (31.0-36.0); MEAN CORPUSCULAR VOLUME 72 fL (80-96); MONOCYTES # (AUTO) 0.4 K/uL (0.1-1.30); MONOCYTES % (AUTO) 9.3 % (2.0-12.0); NEUTROPHILS # (AUTO) 2.2 K/uL (1.8-8.9); NEUTROPHILS % (AUTO) 50.5 % (43.0-81.0); PLATELET COUNT (AUTO) 280 K/uL (150-450); RED BLOOD CELL COUNT(AUTO) 4.07 MIL/uL (4.5-6.0); RED CELL DISTRIBUTION WIDTH 18.7 % (11.5-15.0); WHITE BLOOD COUNT (AUTO) 4.4 K/uL (4.3-11.0)
[2022-12-26 03:22] LABS: APPEARANCE,URINE CLOUDY (CLEAR); BILIRUBIN,URINE 1+ (NEGATIVE); BLOOD, URINE 2+ Ery/uL (NEGATIVE); KETONES,URINE NEGATIVE (NEGATIVE); LEUKOCYTE ESTERASE ,URINE 3+ (NEGATIVE); NITRITE, URINE NEGATIVE (NEGATIVE); PROTEIN,URINE 3+ mg/dl (NEGATIVE); UGLUCOSE NEGATIVE (NEGATIVE)
[2022-12-26 03:23] LABS: COLOR,URINE OTHER (YELLOW)
[2022-12-26 03:34] LABS: AMPHETAMINE, URINE NEGATIVE (NEGATIVE); BARBITURATE, URINE NEGATIVE (NEGATIVE); BENZODIAZEPINE, URINE NEGATIVE (NEGATIVE); CANNABINOID, URINE NEGATIVE (NEGATIVE); OPIATE, URINE NEGATIVE (NEGATIVE); PHENCYCLIDINE SCREEN,URINE NEGATIVE (NEGATIVE)
[2022-12-26 03:38] LABS: ALANINE AMINOTRANSFERASE 42 U/L (12-78); ALBUMIN 3.4 g/dL (3.4-5.0); ALKALINE PHOSPHATASE 132 U/L (46-116); ASPARTATE AMINOTRANSFERASE 25 U/L (15-37); BILIRUBIN,DIRECT 0.1 mg/dL (0.0-0.2); BILIRUBIN,TOTAL 0.2 mg/dL (0.2-1.0); CARBON DIOXIDE 26 mmol/L (21-32); CHLORIDE 108 mmol/L (98-107); CREATININE 1.3 mg/dL (0.6-1.3); GLUCOSE 83 mg/dL (74-106); POTASSIUM 3.6 mmol/L (3.5-5.1); SODIUM SERUM 144 mmol/L (136-145); TOTAL PROTEIN, SERUM 7.2 g/dL (6.4-8.2); UREA NITROGEN, BLOOD 17 mg/dL (7-18)
[2022-12-26 03:45] LABS: ACETAMINOPHEN <10 ug/ml (10-30); ALCOHOL, BLOOD < 3 mg/dL (0-10); SALICYLATE 2.3 mg/dL (2.8-20.0)
[2022-12-26 03:45] LABS: COCCAINE, URINE POSITIVE (NEGATIVE)
[2022-12-26] MEDS ORDERED: CIPROFLOXACIN HCL 500 MG TABLET PO ONE (04:00)
[2022-12-26] MEDS ORDERED: CIPROFLOXACIN HCL 500 MG TABLET ONE (04:28)
[2022-12-26 04:52] LABS: ADD URINE CULTURE YES; BACTERIA,URINE None seen /HPF (None Seen); MUCUS,URINE Many /LPF (None Seen); RBC,URINE 21-50 /HPF (0-2); SQUAMOUS EPITHELIAL CELL,UR None Seen /HPF (None Seen); TRIPLE PHOSPHATE CRYSTAL,UR Few /HPF (None Seen)
[2022-12-26] MEDS ORDERED: TAMS-12 PO ×2 (15:25→15:34)
[2022-12-26] MEDS ORDERED: CEPH500T PO ×2 (15:25→15:34)
[2022-12-26 16:20] VITALS: BP 135/77; TEMP 97.8; O2SAT 97
== END 2022-12-26 16:21 | disposition home or self-care (01) ==
LOC: ER 02:11
DX: R45.851 Suicidal ideations (principal); N39.0 Urinary tract infection, site not specified; N18.9 Chronic kidney disease, unspecified; F32.A Depression, unspecified; F20.9 Schizophrenia, unspecified; F17.200 Nicotine dependence, unspecified, uncomplicated; Z59.00 Homelessness unspecified; Z79.899 Other long term (current) drug therapy; Z20.822 Contact with and (suspected) exposure to COVID-19
CPT/HCPCS: 99285; 85025; 80048; 87086; 80076; 81001; 36415; 87426; 80143; 80320; 80307; C9803; G0480

== ENCOUNTER 2023-01-18 15:13 | Emergency (ER) | payer OTHER ==
[~2023-01-18] VITALS: Ht 172.7 cm; Wt 69.9 kg
[~2023-01-18 15:13] MED LIST changes: +CEPH500T PO
[2023-01-18 15:16] VITALS: TEMP 98.1
[2023-01-18 15:58] LABS: BASOPHILS % (AUTO) 0.9 % (0.0-2.0); EOSINOPHILS # (AUTO) 0.1 K/uL (0.0-0.7); EOSINOPHILS % (AUTO) 1.4 % (0.0-6.0); HEMATOCRIT 31 % (39-51); HEMOGLOBIN 9.8 g/dL (13.5-17.5); LYMPHOCYTES # (AUTO) 0.9 K/uL (0.8-4.8); LYMPHOCYTES % (AUTO) 20.9 % (20.0-44.0); MEAN CORPUSCULAR HEMOGLOBIN 23 PG (26.0-33.0); MEAN CORPUSCULAR HGB CONC 32 g/dl (31.0-36.0); MEAN CORPUSCULAR VOLUME 72 fL (80-96); MONOCYTES # (AUTO) 0.3 K/uL (0.1-1.30); MONOCYTES % (AUTO) 6.4 % (2.0-12.0); NEUTROPHILS # (AUTO) 2.9 K/uL (1.8-8.9); NEUTROPHILS % (AUTO) 70.4 % (43.0-81.0); PLATELET COUNT (AUTO) 327 K/uL (150-450); RED BLOOD CELL COUNT(AUTO) 4.31 MIL/uL (4.5-6.0); RED CELL DISTRIBUTION WIDTH 18.7 % (11.5-15.0); WHITE BLOOD COUNT (AUTO) 4.1 K/uL (4.3-11.0)
[2023-01-18 16:12] LABS: ALANINE AMINOTRANSFERASE 47 U/L (12-78); ALBUMIN 3.5 g/dL (3.4-5.0); ALCOHOL, BLOOD < 3 mg/dL (0-10); ALKALINE PHOSPHATASE 91 U/L (46-116); ASPARTATE AMINOTRANSFERASE 40 U/L (15-37); BILIRUBIN,DIRECT 0.1 mg/dL (0.0-0.2); BILIRUBIN,TOTAL 0.3 mg/dL (0.2-1.0); CALCIUM, SERUM 9.5 mg/dL (8.5-10.1); CARBON DIOXIDE 28 mmol/L (21-32); CHLORIDE 101 mmol/L (98-107); CREATININE 1.4 mg/dL (0.6-1.3); GLUCOSE 124 mg/dL (74-106); POTASSIUM 3.1 mmol/L (3.5-5.1); SODIUM SERUM 137 mmol/L (136-145); TOTAL PROTEIN, SERUM 7.5 g/dL (6.4-8.2); UREA NITROGEN, BLOOD 22 mg/dL (7-18)
[2023-01-18 16:16] LABS: ACETAMINOPHEN 0 ug/ml (10-30); SALICYLATE 1.8 mg/dL (2.8-20.0)
[2023-01-18 16:51] LABS: APPEARANCE,URINE CLOUDY (CLEAR); BILIRUBIN,URINE NEGATIVE (NEGATIVE); BLOOD, URINE 3+ Ery/uL (NEGATIVE); COLOR,URINE YELLOW (YELLOW); KETONES,URINE TRACE mg/dL (NEGATIVE); LEUKOCYTE ESTERASE ,URINE 2+ (NEGATIVE); NITRITE, URINE NEGATIVE (NEGATIVE); PROTEIN,URINE 2+ mg/dl (NEGATIVE); UGLUCOSE NEGATIVE (NEGATIVE); UROBILINOGEN,URINE 0.2 EU/dL (0.2)
[2023-01-18 17:07] LABS: AMPHETAMINE, URINE NEGATIVE (NEGATIVE); BARBITURATE, URINE NEGATIVE (NEGATIVE); BENZODIAZEPINE, URINE NEGATIVE (NEGATIVE); OPIATE, URINE NEGATIVE (NEGATIVE); PHENCYCLIDINE SCREEN,URINE NEGATIVE (NEGATIVE)
[2023-01-18 17:12] LABS: CANNABINOID, URINE POSITIVE (NEGATIVE); COCCAINE, URINE POSITIVE (NEGATIVE)
[2023-01-18 17:20] LABS: WBC,URINE 21-50 /HPF (0-3)
[2023-01-18 17:21] LABS: ADD URINE CULTURE YES; BACTERIA,URINE 1+ /HPF (None Seen); MUCUS,URINE Moderate /LPF (None Seen); SQUAMOUS EPITHELIAL CELL,UR None Seen /HPF (None Seen)
[2023-01-18] MEDS ORDERED: TAMSULOSIN 0.4 MG CAP.SR.24H PO STA (17:33)
[2023-01-18] MEDS ORDERED: TAMS-12 PO (17:41)
[2023-01-18] MEDS ORDERED: NITR100C6 PO (17:41)
[2023-01-18] MEDS ORDERED: POTASSIUM CHLORIDE 20 MEQ TAB.PRT.SR PO ONE ×2 (18:00→18:31)
[2023-01-18] MEDS ORDERED: NITROFURANTOIN/MONOHYDRATE MACROCRYSTALS 100 MG CAPSULE PO ONE (18:00)
[2023-01-18] MEDS ORDERED: TAMSULOSIN 0.4 MG CAP.SR.24H ONE (18:31)
[2023-01-18] MEDS ORDERED: NITROFURANTOIN/MONOHYDRATE MACROCRYSTALS 100 MG CAPSULE ONE (18:31)
[2023-01-19 10:37] VITALS: BP 145/80; O2SAT 97
== END 2023-01-19 10:39 ==
LOC: ER 15:33
DX: R45.851 Suicidal ideations (principal); N39.0 Urinary tract infection, site not specified; E87.6 Hypokalemia; F14.10 Cocaine abuse, uncomplicated; F12.10 Cannabis abuse, uncomplicated; D50.9 Iron deficiency anemia, unspecified; R31.9 Hematuria, unspecified; N40.0 Benign prostatic hyperplasia without lower urinary tract symptoms; N18.9 Chronic kidney disease, unspecified; F32.A Depression, unspecified; F17.200 Nicotine dependence, unspecified, uncomplicated; Z98.890 Other specified postprocedural states; Z79.899 Other long term (current) drug therapy; Z20.822 Contact with and (suspected) exposure to COVID-19; Z59.00 Homelessness unspecified
CPT/HCPCS: 99285; 85025; 80048; 87086; 80076; 81001; 36415; 87426; 80143; 80320; 80307; C9803; G0480

== ENCOUNTER 2023-02-01 00:10 | Emergency (ER) | payer OTHER ==
[~2023-02-01] VITALS: Ht 177.8 cm; Wt 68.0 kg
[~2023-02-01 00:10] MED LIST changes: +NITR100C6 PO
[2023-02-01 00:15] VITALS: TEMP 98.3
[2023-02-01 06:28] LABS: BASOPHILS % (AUTO) 0.6 % (0.0-2.0); EOSINOPHILS # (AUTO) 0.2 K/uL (0.0-0.7); EOSINOPHILS % (AUTO) 3.2 % (0.0-6.0); HEMATOCRIT 31 % (39-51); HEMOGLOBIN 9.7 g/dL (13.5-17.5); LYMPHOCYTES % (AUTO) 40.2 % (20.0-44.0); MEAN CORPUSCULAR HEMOGLOBIN 23 PG (26.0-33.0); MEAN CORPUSCULAR HGB CONC 31 g/dl (31.0-36.0); MEAN CORPUSCULAR VOLUME 73 fL (80-96); MONOCYTES # (AUTO) 0.4 K/uL (0.1-1.30); MONOCYTES % (AUTO) 8.8 % (2.0-12.0); NEUTROPHILS # (AUTO) 2.3 K/uL (1.8-8.9); NEUTROPHILS % (AUTO) 47.2 % (43.0-81.0); PLATELET COUNT (AUTO) 244 K/uL (150-450); RED BLOOD CELL COUNT(AUTO) 4.27 MIL/uL (4.5-6.0); RED CELL DISTRIBUTION WIDTH 17.8 % (11.5-15.0); WHITE BLOOD COUNT (AUTO) 4.9 K/uL (4.3-11.0)
[2023-02-01 06:38] LABS: CALCIUM, SERUM 9.2 mg/dL (8.5-10.1); CARBON DIOXIDE 28 mmol/L (21-32); CHLORIDE 103 mmol/L (98-107); CREATININE 1.2 mg/dL (0.6-1.3); GLUCOSE 107 mg/dL (74-106); POTASSIUM 3.4 mmol/L (3.5-5.1); SODIUM SERUM 138 mmol/L (136-145); UREA NITROGEN, BLOOD 21 mg/dL (7-18)
[2023-02-01 06:45] LABS: ALANINE AMINOTRANSFERASE 40 U/L (12-78); ALBUMIN 3.4 g/dL (3.4-5.0); ALCOHOL, BLOOD < 3 mg/dL (0-10); ALKALINE PHOSPHATASE 190 U/L (46-116); ASPARTATE AMINOTRANSFERASE 26 U/L (15-37); BILIRUBIN,TOTAL 0.2 mg/dL (0.2-1.0); TOTAL PROTEIN, SERUM 7.6 g/dL (6.4-8.2)
[2023-02-01 06:59] LABS: BILIRUBIN,DIRECT 0.1 mg/dL (0.0-0.2)
[2023-02-01 07:05] LABS: ACETAMINOPHEN <10 ug/ml (10-30)
[2023-02-01 13:16] LABS: APPEARANCE,URINE SLIGHTLY CLOUDY (CLEAR); BILIRUBIN,URINE NEGATIVE (NEGATIVE); BLOOD, URINE 3+ Ery/uL (NEGATIVE); COLOR,URINE ORANGE (YELLOW); KETONES,URINE NEGATIVE (NEGATIVE); LEUKOCYTE ESTERASE ,URINE 3+ (NEGATIVE); NITRITE, URINE NEGATIVE (NEGATIVE); PROTEIN,URINE 1+ mg/dl (NEGATIVE); UGLUCOSE NEGATIVE (NEGATIVE); UROBILINOGEN,URINE 0.2 EU/dL (0.2)
[2023-02-01 13:24] LABS: AMPHETAMINE, URINE NEGATIVE (NEGATIVE); BARBITURATE, URINE NEGATIVE (NEGATIVE); BENZODIAZEPINE, URINE NEGATIVE (NEGATIVE); CANNABINOID, URINE NEGATIVE (NEGATIVE); COCCAINE, URINE NEGATIVE (NEGATIVE); OPIATE, URINE NEGATIVE (NEGATIVE); PHENCYCLIDINE SCREEN,URINE NEGATIVE (NEGATIVE)
[2023-02-01 13:25] LABS: ADD URINE CULTURE YES; BACTERIA,URINE Rare /HPF (None Seen); SQUAMOUS EPITHELIAL CELL,UR Few /HPF (None Seen)
[2023-02-01 16:00] VITALS: BP 132/80; O2SAT 98
== END 2023-02-01 16:00 ==
LOC: ER 00:12
DX: N36.8 Other specified disorders of urethra (principal); N18.9 Chronic kidney disease, unspecified; F32.A Depression, unspecified; F20.9 Schizophrenia, unspecified; Z59.00 Homelessness unspecified; Z79.899 Other long term (current) drug therapy; Z20.822 Contact with and (suspected) exposure to COVID-19
CPT/HCPCS: 99285; 85025; 80048; 87086; 80076; 81001; 36415; 87426; 80143; 80320; 80307; C9803; G0480